=== PATIENT | female | born 1955 | race Caucasian/White ===

== ENCOUNTER 2018-03-11 09:54 | Observation (INO) ==
[2018-03-11] MEDS ORDERED: Naloxone 0.4 MG/ML INJ IVP PRN (11:12)
--- NOTE | 2018-03-11 11:58 | Internal Med History&Physical ---
Date of Encounter: 03/11/18 Time of Encounter: 11:20 Internal Medicine - H&P: HPI Chief complaint: frequent fall, ?right sided weakness Admitted From: Home History of present illness: Ms. Hanley is a 63 year old female with past medical history of osteoporosis and cerebral palsy who lives in custodial presented to the outside hospital ED with frequent falls and concern for right-sided weakness. History is limited due to patient's cerebral palsy hence further information was obtained from discussion with the ED physician as well as patient' emergency contact. At baseline, she is able to walk up and down the stairs, feed herself, does not have verbal output but communicates with writing. On Saturday, she had an episode of fall following which she suffered left forehead laceration which was stapled. She represented back to the ED the next day when she had CT scan which was unremarkable. As she continued to deteriorate in terms of functional capacity (especially the loss of purposeful movement on R UE and resultant inability to carry out her ADLs) throughout Saturday and Saturday, patient was sent back to the ED for the 3rd time today for further evaluation. REpeat CT was again unremarkable. Labworks were WNL. CXR did not show any evidence of acute cardiopulmonary processes. Urinalysis did not show any leukocyte esterase or nitrite. She was tranferred to [facility] for further evaluation. Past Med Surg Social Fam HX - Past Medical History Source: old records reviewed, other (obtained from discussion with ED physician and emergency contact) Medical history: arthritis, osteoporosis, other Additional medical history: cerebral palsy Psychiatric history: no psych history - Social History Smoking Status: Never smoker Smokeless Tobacco Status: No Alcohol use: none Drug use: none Internal Medicine - H&P: Meds Alendronate Sodium [Fosamax] 70 mg PO QWEEK 09/13/15 [History] Erythromycin OPTH Oint 0.5 % OP HS 09/13/15 [History] traMADol [Ultram] 50 mg PO BID 09/13/15 [History] Calcium Carbonate/Vitamin D3 [Oyster Shell Calcium-Vit D Tab] 1 each PO QPM 02/18 [History] Calcium Carbonate/Vitamin D3 [Oyster Shell Calcium-Vit D Tab] 2 each PO QAM 02/18 [History] 3 Allergy/AdvReac Type Severity Reaction Status Date / Time dexamethasone [From TobraDex] Allergy See Verified 03/11/18 08:07 Comments tobramycin [From TobraDex] Allergy See Verified 03/11/18 08:07 Comments ROS unobtainable: due to mental status All Systems PM: A 10-system review of systems was performed and is negative for pertinent findings except as documented above in the HPI. - Constitutional Vitals: Vital signs reviewed Exam: General: Alert, not in acute distress. HEENT: pupils equal, round and reactive. Left upper forehead laceration noted without surrounding erythema or discharge. Cardiovascular:Normal S1 & S2, No JVD. Pulse regular. Lungs: clear to auscultation, no wheezes/rales Abdomen:Soft, non-tender, no rigidity. Extremities:No joint swelling Neurological: unable to folllow commands reliably for cranial nerve exams. RUE in flexed position but no spasticity noted. L UE/LE moving spontaneously. No gaze preference. No tremor. Moving both LE's spontaneously Skin:Normal color, no rash, no lesions. Pulses:Carotid and radial pulses normal +2. Rest of the physical exam is non contributory - Assessment and plan (1) Right sided weakness Current Visit: No Status: Acute Assessment and plan: Presented with frequent falls and decline in functional capacity, also concerning for right-sided weakness CT head 2 were reported unremarkable ?faint hypotensity in R parietooccipital region, but no loss of fried-white differentiation no known risk factors for CVA rectal aspirin once MRI brain further workup pending MRI result telemetry check A1c and lipid PT/OT (2) Accidental fall Current Visit: No Status: Acute Assessment and plan: neuro evaluation as above PT/OT Qualifiers: Encounter type: subsequent encounter Qualified Code(s): W19.XXXD - Unspecified fall, subsequent encounter (3) Osteoporosis Current Visit: Yes Status: Acute Assessment and plan: hold off on home meds till speech eval Qualifiers: Osteoporosis type: unspecified Presence of current pathological fracture: unspecified Qualified Code(s): M81.0 - Age-related osteoporosis without current pathological fracture (4) DVT prophylaxis Current Visit: Yes Status: Acute Assessment and plan: SQ heparin - Time Spent With Patient Total time spent is greater than 50% in coordination of care (as documented) at patient's floor/unit and/or counseling patient:
[2018-03-11] MEDS: Ketorolac 15 MG/ML VIAL IVP PRN (15:10)
[2018-03-12 05:03] LABS: BUN/Creatinine Ratio 33 (6-26); Blood Urea Nitrogen 16 mg/dL (8-23); Calcium 8.9 mg/dL (8.6-10.3); Carbon Dioxide 25 mEq/L (23-29); Chloride 109 mEq/L (98-107); Chol/HDL Ratio 2.3 (0-4.9); Cholesterol 119 mg/dL (< 200); Glucose 101 mg/dL (70-105); HDL Cholesterol 51 mg/dL (40-59); LDL Cholesterol,Calculated 53 mg/dL (0-99); Osmolality,Calculated 291 (280-300); Potassium 3.8 mEq/L (3.5-5.1); Sodium 140 mEq/L (136-145); Triglycerides 73 mg/dL (< 150); eGFR For Non-African Americans > 60 (> 60)
[2018-03-12 05:50] LABS: Hematocrit 31.4 % (35.3-44.9); Mean Corpuscular HGB Conc 34.4 g/dL (31.6-35.5); Mean Corpuscular Hemoglobin 31.6 pg (28.0-33.3); Mean Corpuscular Volume 91.8 fL (83.0-100.0); Platelet Count 182 K/mcL (140-400); Red Blood Count 3.42 M/mcL (3.82-4.97); Red Cell Distribution Width 12.7 % (11.5-14.5)
[2018-03-12 06:27] LABS: Hemoglobin 10.8 g/dL (11.5-15.4)
[2018-03-12] MEDS: Ketorolac 15 MG/ML VIAL IVP PRN ×3 (08:04→18:34)
[2018-03-12 11:29] LABS: Estimated Average Glucose 126 mg/dl
--- NOTE | 2018-03-12 11:36 | Internal Med Progress Note ---
Hospitalist Progress Note - Encounter Date of Encounter: 03/12/18 Time of Encounter: 11:40 - Subjective Interval History: Patient evaluated at bedside. Due to patient Hx of cerebral palsy no reliable information could be obtain. during evaluation pain moans to pain with ROM of the right ankle. extremity, is not warm or erythematous but is painful to touch in the lateral side of the right ankle. - Exam Vitals: Temp Pulse Resp BP Pulse Ox 97.5 F L 66 18 125/66 98 03/12/18 07:28 03/12/18 07:28 03/12/18 07:28 03/12/18 07:28 03/12/18 07:28 Exam: General: Patient is Awake. In mild distress due to pain at the right ankle. Head: atraumatic, normocephalic, Respiratory: Good respiratory effort. Clear to auscultation bilaterally, no wheezing, rales or crackles. Cardiovascular: RRR, normal s1 and s2, No rubs, gallops, or murmors. Abdomen: Bowel sounds present normoactive x-4 quadrants. Abdomen is soft, nondistended. No guarding or rebound. No organomegaly noted, obese Musculoskeletal: Spontaneously moving all extremities, but decreased ROM of the right foot due to ankle pain. Neuro: Unable to perform a neurological exam due to patient's cerebral palsy. Psych: Patient's affect is normal - Assessment and Plan (1) Osteoporosis Current Visit: Yes Status: Acute Assessment and Plan: XR/XR foot 3V RT IMPRESSION: 1. Marked hallux valgus deformity with mild degenerative changes of the 1st MTP joint. 2. Mild subluxation of the 2nd digit at the PIP joint. 3. No other acute osseous abnormality. Given the degree of osteopenia, nondisplaced fractures may be radiographically occult. If pain or concern for fracture persists, consider MR imaging. Plan: Patient complains of rain to palpation at the lateral side of the right ankle. Abnormal x-ray of this extr. cannot r/o fracture. Ortho has been consulted and will follow recommendations Pain control with Ketorolac 15mg/IV Q6HR. (2) Right sided weakness Current Visit: No Status: Acute Assessment and Plan: Following a fall. Possible due to pain and being unable to bear weight in the right lower extr. MRI of the brain done r/o stroke. PT/OT has been ordered. (3) Accidental fall Current Visit: No Status: Inactive Assessment and Plan: Fall precautions. No ambulation until Ortho evaluates the patient, due to possible fracture of the right ankle. DVT Prophylaxis: ON heparin 5000 units SubQ BID for DVT prophylaxis. - Summary of Assessment and Plan Summary of Assessment and Plan: Patient needs to remain in the hospital to complete skeletal survey workup for possible fracture of the right ankle. Ortho consulted, pending evaluation. - Time Spent with Patient Total time spent is greater than 50% in coordination of care (as documented) at patient's floor/unit and/or counseling patient: 25 - 35 minutes Plan of Care Discussed with: nurse Internal Medicine: Result - Labs CBC & Chem 7: 03/12/18 05:30 03/12/18 04:23 Labs: Short CBC 03/12/18 Range/Units 05:30 WBC 7.9 (4.3-11.1) K/mcL Hgb 10.8 L D (11.5-15.4) g/dL Hct 31.4 L (35.3-44.9) % Plt Count 182 (140-400) K/mcL BMP 03/12/18 04:23 Sodium 140 Potassium 3.8 Chloride 109 H Carbon Dioxide 25 BUN 16 Creatinine 0.49 L Glucose 101 Calcium 8.9 - Impressions Impressions Brain MRI 03/11/18 11:49 IMPRESSION: Severely motion degraded examination. No gross evidence of acute infarct or large area of hemorrhage. Repeat examination may be obtained as clinically warranted. D/ / 03/11/2018 18:56:04 Sachin Anthony MD / [facility] Interpreting Provider: Sachin Anthony MD Foot X-Ray 03/11/18 14:44 IMPRESSION: 1. Marked hallux valgus deformity with mild degenerative changes of the 1st MTP joint. 2. Mild subluxation of the 2nd digit at the PIP joint. 3. No other acute osseous abnormality. Given the degree of osteopenia, nondisplaced fractures may be radiographically occult. If pain or concern for fracture persists, consider MR imaging. D/ / 03/11/2018 15:56:53 Greta Anthony MD / [facility] Interpreting Provider: Greta Anthony MD Consult Discharge Plan - Plan Referrals: Julienne Durham MD [Primary Care Provider] - (1) Osteoporosis Qualifiers: Osteoporosis type: unspecified Presence of current pathological fracture: unspecified Qualified Code(s): M81.0 - Age-related osteoporosis without current pathological fracture (3) Accidental fall Qualifiers: Encounter type: subsequent encounter Qualified Code(s): W19.XXXD - Unspecified fall, subsequent encounter
[2018-03-12] MEDS: *HR* Heparin 5,000 UNIT/ML VIAL SQ SCH (16:44)
[2018-03-13] MEDS: Ketorolac 15 MG/ML VIAL IVP PRN ×2 (04:04→12:15)
[2018-03-13] MEDS: *HR* Heparin 5,000 UNIT/ML VIAL SQ SCH ×2 (05:37→17:01)
--- NOTE | 2018-03-13 11:25 | Internal Med Progress Note ---
Hospitalist Progress Note - Encounter Date of Encounter: 03/13/18 Time of Encounter: 11:23 - Subjective Interval History: Pt sitting in chair at bedside. Poor historian due to history of cerebral palsy. No acute changes during the night per nurse. Pt is from assisted living and assisted living currently working on guardian for the pt. - Exam Vitals: Temp Pulse Resp BP Pulse Ox 97.5 F L 66 18 109/71 96 03/13/18 11:00 03/13/18 11:00 03/13/18 11:00 03/13/18 11:00 03/13/18 11:00 Exam: Exam: General: Patient is Awake. In mild distress due to pain at the right ankle. Head: atraumatic, normocephalic, Respiratory: Good respiratory effort. Clear to auscultation bilaterally, no wheezing, rales or crackles. Cardiovascular: RRR, normal s1 and s2, No rubs, gallops, or murmors. Abdomen: Bowel sounds present normoactive x-4 quadrants. Abdomen is soft, nondistended. No guarding or rebound. No organomegaly noted, obese Musculoskeletal: Spontaneously moving all extremities, but decreased ROM of the right foot due to ankle pain. Neuro: Unable to perform a neurological exam due to patient's cerebral palsy. Psych: Patient's affect is normal - Assessment and Plan (1) Right sided weakness Current Visit: No Status: Acute Assessment and Plan: Following a fall. Possible due to pain and being unable to bear weight in the right lower extr. MRI of the brain neg for stroke. PT/OT has been ordered ad recommending inpt rehab Orthopedic consulted and awaiting evaluation. Also [facility] may not want pt to go to inpt rehab for reasons that are not completely clear. SW and CM on board and assisting with discharge. (2) Accidental fall Current Visit: No Status: Inactive Assessment and Plan: Fall precautions. No ambulation until Ortho evaluates the patient, due to possible fracture of the right ankle. (3) Osteoporosis Current Visit: Yes Status: Acute Assessment and Plan: XR/XR foot 3V RT IMPRESSION: 1. Marked hallux valgus deformity with mild degenerative changes of the 1st MTP joint. 2. Mild subluxation of the 2nd digit at the PIP joint. 3. No other acute osseous abnormality. Given the degree of osteopenia, nondisplaced fractures may be radiographically occult. If pain or concern for fracture persists, consider MR imaging. prn pain control with Ketorolac 15mg/IV Q6HR. DVT Prophylaxis: On heparin 5000 units SubQ BID for DVT prophylaxis. - Summary of Assessment and Plan Summary of Assessment and Plan: Ms. Hanley is a 63 year old female with past medical history of osteoporosis and cerebral palsy who lives in [facility] presented to the outside hospital ED with frequent falls and concern for right-sided weakness. History is limited due to patient's cerebral palsy hence further information was obtained from discussion with the ED physician as well as patient' emergency contact. At baseline, she is able to walk up and down the stairs, feed herself, does not have verbal output but communicates with writing. On Saturday, she had an episode of fall following which she suffered left forehead laceration which was stapled. She represented back to the ED the next day when she had CT scan which was unremarkable. As she continued to deteriorate in terms of functional capacity (especially the loss of purposeful movement on R UE and resultant inability to carry out her ADLs) throughout Saturday and Saturday, patient was sent back to the ED for the 3rd time today for further evaluation. REpeat CT was again unremarkable. Labworks were WNL. CXR did not show any evidence of acute cardiopulmonary processes. Urinalysis did not show any leukocyte esterase or nitrite. She was tranferred to [facility] for further evaluation by orthopedic. - Time Spent with Patient Total time spent is greater than 50% in coordination of care (as documented) at patient's floor/unit and/or counseling patient: less than 15 minutes Plan of Care Discussed with: patient Internal Medicine: Result - Labs CBC & Chem 7: 03/12/18 05:30 03/12/18 04:23 - Impressions Impressions Brain MRI 03/11/18 11:49 IMPRESSION: Severely motion degraded examination. No gross evidence of acute infarct or large area of hemorrhage. RECOMMENDATIONS: Repeat examination may be obtained as clinically warranted. D/ / 03/11/2018 18:56:04 Sachin Anthony MD / [facility] Interpreting Provider: Sachin Anthony MD Consult Discharge Plan - Plan Referrals: Julienne Durham MD [Primary Care Provider] - (2) Accidental fall Qualifiers: Encounter type: subsequent encounter Qualified Code(s): W19.XXXD - Unspecified fall, subsequent encounter (3) Osteoporosis Qualifiers: Osteoporosis type: unspecified Presence of current pathological fracture: unspecified Qualified Code(s): M81.0 - Age-related osteoporosis without current pathological fracture
[2018-03-14] MEDS: *HR* Heparin 5,000 UNIT/ML VIAL SQ SCH (05:39)
[2018-03-14] MEDS: Ketorolac 15 MG/ML VIAL IVP PRN (07:58)
--- NOTE | 2018-03-14 11:01 | Internal Med Progress Note ---
Hospitalist Progress Note - Encounter Date of Encounter: 03/14/18 Time of Encounter: 10:59 - Subjective Interval History: Patient seen and examined this morning. No overnight events. In bed. In no acute distress. able to communicate about Rt ankle being tender. - Exam Vitals: Temp Pulse Resp BP Pulse Ox 98.2 F 65 16 142/85 93 03/14/18 06:53 03/14/18 06:53 03/14/18 06:53 03/14/18 06:53 03/14/18 06:53 Exam: General: In no acute distress. awake but not able to communicate due to cerebral palsy. Respiratory exam: CTAB. no accessory muscle use, rales, rhonchi, wheezes Cardiovascular exam: RRR, +S1, +S2. no murmur, gallop, rubs. GI/Abdominal exam: Non-tender, Non-distended, normal bowel sounds, soft, no peritoneal signs. Extremities exam: full ROM, no pedal edema. Grimace on palpation of Rt ankle. Neurological exam: could not be performed. Moving all limbs. Skin exam: No skin rash, ulcer, purpura or ecchymosis. - Assessment and Plan (1) Right sided weakness Current Visit: No Status: Acute (2) Accidental fall Current Visit: No Status: Inactive (3) Osteoporosis Current Visit: Yes Status: Acute - Summary of Assessment and Plan Summary of Assessment and Plan: Accidental falls - At baseline, she is able to walk up and down the stairs, feed herself, does not have verbal output but communicates with writing. - Fall precautions. - possibly due to Rt ankle fracture and related pain. - No ambulation until Ortho evaluates the patient. - UA unremarkable Right sided weakness - MRI of the brain neg for stroke. - PT/OT recommending inpt rehab - awaiting Orthopedic evaluation. - Assisted living may not want pt to go to inpt rehab for reasons that are not completely clear. - SW and CM on board and assisting with discharge. Osteoporosis - Given the degree of osteopenia, nondisplaced fractures may be radiographically occult. will differ further imaging(MR) per Ortho. - prn pain control with Ketorolac 15mg/IV Q6HR. DVT Prophylaxis: - heparin - Time Spent with Patient Total time spent is greater than 50% in coordination of care (as documented) at patient's floor/unit and/or counseling patient: Internal Medicine: Result - Labs CBC & Chem 7: 03/12/18 05:30 03/12/18 04:23 - Impressions Impressions Foot X-Ray 03/11/18 14:44 IMPRESSION: 1. Marked hallux valgus deformity with mild degenerative changes of the 1st MTP joint. 2. Mild subluxation of the 2nd digit at the PIP joint. 3. No other acute osseous abnormality. Given the degree of osteopenia, nondisplaced fractures may be radiographically occult. If pain or concern for fracture persists, consider MR imaging. D/ / 03/11/2018 15:56:53 Greta Anthony MD / [facility] Interpreting Provider: Greta Anthony MD Consult Discharge Plan - Plan Referrals: Julienne Durham MD [Primary Care Provider] - (2) Accidental fall Qualifiers: Encounter type: subsequent encounter Qualified Code(s): W19.XXXD - Unspecified fall, subsequent encounter (3) Osteoporosis Qualifiers: Osteoporosis type: unspecified Presence of current pathological fracture: unspecified Qualified Code(s): M81.0 - Age-related osteoporosis without current pathological fracture
--- NOTE | 2018-03-14 11:39 | Physician Discharge Referral ---
- Diagnosis (1) Right sided weakness Status: Acute (2) Accidental fall Status: Inactive (3) Osteoporosis Status: Acute - Respiratory Orders Smoking Cessation: Smoking cessation has been advised. For more information, call the [place] Tobacco Quit Line at 6-582-ISTY-NOW. - Services Needed Following services are medically necessary services: Physical Therapy, Occupational Therapy - Transfer Medications Home Medications: Alendronate Sodium [Fosamax] 70 mg PO QWEEK 09/13/15 [History] Baclofen [Lioresal] 10 mg PO TID 03/11/18 [History] Calcium Carbonate/Vitamin D3 [Oyster Shell Calcium-Vit D Tab] 1 each PO QPM 02/18 [History] Calcium Carbonate/Vitamin D3 [Oyster Shell Calcium-Vit D Tab] 2 each PO QAM 02/18 [History] traZODone [TraZODone] 50 mg PO HS 03/11/18 [History] Allergies/Adverse Reactions: 3 Allergy/AdvReac Type Severity Reaction Status Date / Time dexamethasone [From TobraDex] Allergy See Verified 03/11/18 08:07 Comments tobramycin [From TobraDex] Allergy See Verified 03/11/18 08:07 Comments Certification: Further, I certify that my clinical findings support that this patient is homebound (i.e. absences from home require considerable and taxing effort and are for medical reasons or latter-day services or infrequently or short duration when for other reasons) because: Homebound Reason: Patient requires assistance of a person or device to safely leave home Attestation: My signature below is to certify that this patient is under my care and that I, or nurse practitioner, or a physician's chiropractor assistant working with me, has a face-to -face encounter with this patient.
[2018-03-14 12:30] LABS: Bilirubin,Urine Negative (Negative); Blood,Urine Large (Negative); Clarity,Urine Cloudy (Clear); Color,Urine Yellow (Yellow); Glucose,Urine (UA) 100 mg/dL (Normal); Ketones,Urine Negative (Negative); Leukocyte Esterase,Urine Small (Negative); Nitrite,Urine Negative (Negative); Protein,Urine 30 mg/dL (Neg-Trace); Specific Gravity,Urine 1.018 (1.010-1.025); Urobilinogen,Urine Normal (Normal)
[2018-03-14 12:33] LABS: Bacteria,Urine Many per hpf (None-Few); Hyaline Casts,Urine None Seen per lpf (None-Few); RBC,Urine 0-3 per hpf (0-3); Squamous Epithelial Cell,Urine Many per lpf (None-Few)
[2018-03-14 12:51] VITALS: BP 117/65
--- NOTE | 2018-03-14 15:51 | Discharge Summary ---
- NOTES TO OUTPATIENT PROVIDER Notes to Outpatient Provider: Needs to follow with orthopedist within one week. Date of Encounter: 03/14/18 Time of Encounter: 15:49 - Discharge Diagnosis (1) Right sided weakness Priority: Primary Status: Acute (2) Accidental fall Priority: Primary Status: Inactive Qualifiers: Encounter type: subsequent encounter Qualified Code(s): W19.XXXD - Unspecified fall, subsequent encounter (3) Osteoporosis Priority: Secondary Status: Acute Qualifiers: Osteoporosis type: unspecified Presence of current pathological fracture: unspecified Qualified Code(s): M81.0 - Age-related osteoporosis without current pathological fracture Hospital course: Ms. Hanley is a 63 year old female past medical history of osteoporosis, cerebral palsy who came to ED with concerns of fall and some right-sided weakness. Patient had workup for stroke with MRI which was negative. As far as the falls, unclear how much mobility patient had before. Orthopedist were consulted for possible right ankle fracture on foot x-ray. Patient is known to their service and has the same problem ongoing for a while. Discussed with the orthopedist and patient to be followed with them as outpatient which is already scheduled. No further intervention or imaging necessary from orthopedist point a few. Patient would be discharged today back to enough home health as there are no other acute ongoing medical problems. Discharge discussed with: nurse, technology consultant - Time Spent with Patient Total time spent providing and/or coordinating discharge services: Greater than 30 minutes (45) - Discharge Medications Home Medications: Alendronate Sodium [Fosamax] 70 mg PO QWEEK 09/13/15 [History] Baclofen [Lioresal] 10 mg PO TID 03/11/18 [History] Calcium Carbonate/Vitamin D3 [Oyster Shell Calcium-Vit D Tab] 1 each PO QPM 02/18 [History] Calcium Carbonate/Vitamin D3 [Oyster Shell Calcium-Vit D Tab] 2 each PO QAM 02/18 [History] traZODone [TraZODone] 50 mg PO HS 03/11/18 [History] Ketorolac [Toradol] 10 mg PO Q8HR 4 Days #12 tablet 03/14/18 [Rx] Allergies/Adverse Reactions: 3 Allergy/AdvReac Type Severity Reaction Status Date / Time dexamethasone [From TobraDex] Allergy See Verified 03/11/18 08:07 Comments tobramycin [From TobraDex] Allergy See Verified 03/11/18 08:07 Comments Date of admission: 03/11/18 11:10 Primary care physician: Julienne Durham MD Consults: 03/11/18 11:13 Consult to Occupational Therapy [CONS] Routine Comment: Evaluate, develop and implement POC Reason for Consult: suspected CVA Does patient have active BEDREST order?: No Is patient medically & hemodynamically stable?: Yes Consult to Physical Therapy [CONS] Routine Comment: Evaluate, develop and implement POC Reason for Consult: suspected CVA Does patient have active BEDREST order?: No Is patient medically & hemodynamically stable?: Yes 03/11/18 11:14 Consult to Speech Therapy [CONS] Routine Comment: Evaluate, develop and implement POC Reason for Consult: suspected CVA Call Completed: No 03/11/18 14:46 Consult to Mash Tub Cooker Operator [CONS] Routine Reason for SW Consult: Patient with cerebral palsy, may need alternative placement 03/12/18 11:30 Consult to Orthopedic Surgery [CONS] Routine Consulting Provider: [facility] Reason for Consult: Possible facture at the right ankle. Call Completed: No - Constitutional Vitals: Temp Pulse Resp BP Pulse Ox 97.5 F L 66 16 117/65 93 03/14/18 12:50 03/14/18 12:50 03/14/18 12:50 03/14/18 12:50 03/14/18 12:50 Exam: General: In no acute distress. awake but not able to communicate due to cerebral palsy. Respiratory exam: CTAB. no accessory muscle use, rales, rhonchi, wheezes Cardiovascular exam: RRR, +S1, +S2. no murmur, gallop, rubs. GI/Abdominal exam: Non-tender, Non-distended, normal bowel sounds, soft, no peritoneal signs. Extremities exam: no pedal edema. Grimace on palpation of Rt ankle. Contracture noted on all extremities. Neurological exam: could not be performed. Moving all limbs. Skin exam: No skin rash, ulcer, purpura or ecchymosis. - Patient Status Disposition: Home Health Service Condition: Fair - Discharge Instructions Follow Up With: Julienne Durham MD [Primary Care Provider] - 03/17/18 2:00 pm Terrell Ellison MD [Non-Partnered Physician] - 03/26/18 9:20 am - Diet and Activity Diet: other (soft diet chopped)
== END 2018-03-14 17:18 | disposition home health service (06) ==
LOC: 3BNU → SUATTDRO 11:10
PROVIDERS: ADMIT Internal Medicine; ATTEND Internal Medicine